=== PATIENT | male | born 1990 | race African-American/Black ===

== ENCOUNTER 2021-07-24 14:10 | Emergency (ER) | payer BC ==
[~2021-07-24] VITALS: Ht 172.7 cm; Wt 80.0 kg
[2021-07-24 14:10] VITALS: BP 139/89
--- NOTE | 2021-07-24 14:30 | PHYS DOC ---
General Adult EDM: Chief Complaint: Covid exposure HPI: HPI: 30-year-old male who presents with Covid exposure. He is staying at the local nursing home house and has had a confirmed exposure. Patient is having a dry intermittent cough. He has a 3-year-old child and is concerned about exposing him/her. He also has been asked by his employer to get tested given his exposure. That is why the patient came today. He denies fever or chills. He is vaccinated against COVID-19. He has never tested positive as far he knows. Review of Systems: Review of Systems: Constitutional: Denies fever or chills Eyes: Denies change in visual acuity HENT: Denies nasal congestion or sore throat Respiratory: Cough without shortness of breath Cardiovascular: Denies chest pain or edema GI: Denies abdominal pain, nausea, vomiting, bloody stools or diarrhea : Denies dysuria Musculoskeletal: Denies back pain or joint pain Integument: Denies rash Neurologic: Denies headache, focal weakness or sensory changes Endocrine: Denies polyuria or polydipsia Lymphatic: Denies swollen glands Psychiatric: Denies depression or anxiety Physical Exam: PE: Constitutional: Well developed, well nourished, no acute distress, non-toxic appearance. [] HENT: Normocephalic, atraumatic, bilateral external ears normal, oropharynx moist, no oral exudates, nose normal. [] Eyes: PERRLA, EOMI, conjunctiva normal, no discharge. [] Neck: Normal range of motion, no tenderness, supple, no stridor. [] Cardiovascular: Heart rate regular rhythm, no murmur [] Lungs & Thorax: Bilateral breath sounds clear to auscultation [] Abdomen: Bowel sounds normal, soft, no tenderness, no masses, no pulsatile masses. [] Skin: Warm, dry, no erythema, no rash. [] Back: No tenderness, no CVA tenderness. [] Extremities: No tenderness, no cyanosis, no clubbing, ROM intact, no edema. [] Neurologic: Alert and oriented X 3, normal motor function, normal sensory function, no focal deficits noted. [] Psychologic: Affect normal, judgement normal, mood normal. [] EKG: EKG: [] Radiology/Procedures: Radiology/Procedures: [] Heart Score: C/O Chest Pain: N/A Risk Factors: Risk Factors: DM, Current or recent (<one month) smoker, HTN, HLP, family history of CAD, obesity. Risk Scores: Score 0 - 3: 2.5% MACE over next 6 weeks - Discharge Home Score 4 - 6: 20.3% MACE over next 6 weeks - Admit for Clinical Observation Score 7 - 10: 72.7% MACE over next 6 weeks - Early Invasive Strategies Course & Med Decision Making: Course & Med Decision Making Pertinent Labs and Imaging studies reviewed. (See chart for details) The patient's rapid influenza and COVID are negative. I have informed the patient (not necessarily mean he does not have COVID-19. If he develops more symptoms he should still isolate from other people. He is stable for discharge at this time. [] Isidoroon Disclaimer: Omi Disclaimer: This electronic medical record was generated, in whole or in part, using a voice recognition dictation system. Departure Departure: Impression: Primary Impression: Exposure to COVID-19 virus Disposition: HOME / SELF CARE / HOMELESS Condition: STABLE Referrals: PCP,UNKNOWN (PCP) RONALDO LYNN DO Jul 24, 2021 14:30
[2021-07-24 14:54] LABS: INFLUENZA A PATIENT NEGATIVE (NEGATIVE); INFLUENZA B PATIENT NEGATIVE (NEGATIVE)
[2021-07-24] MEDS ORDERED: AMOX1TAB11 PO (15:25)
[2021-07-24] MEDS ORDERED: AMOXICILLIN/K CLAV 875/125MG TABLET. PO ONE (15:30)
== END 2021-07-24 15:32 | disposition home or self-care (01) ==
LOC: ER 14:10
DX: R05.9 Cough, unspecified (principal); Z20.822 Contact with and (suspected) exposure to COVID-19
CPT/HCPCS: 87428; 99283

== ENCOUNTER 2021-08-02 19:12 | Emergency (ER) | payer BC ==
[~2021-08-02] VITALS: Ht 172.7 cm; Wt 79.6 kg
[~2021-08-02 19:12] MED LIST: AMOX1TAB11 PO
[2021-08-02 19:36] VITALS: BP 135/108
[2021-08-02] MEDS ORDERED: HYDR-2155 PO (20:18)
--- NOTE | 2021-08-02 20:23 | PHYS DOC ---
Past History Past Surgical History: No Surgical History (SUSAN BEEBE APRN) Alcohol Use: Occasionally (SUSAN BEEBE APRN) General Adult EDM: Chief Complaint: DENTAL PROBLEM HPI: HPI: Patient is a 30-year-old male presents with right lower dental pain and swelling. Patient reports he had a root canal a week ago. Swelling started yesterday. Patient is out of his hydrocodone and is unable to sleep due to pain. Reports taking ibuprofen today with little relief. Patient has a dentist and will be calling tomorrow to make a follow-up appointment in the morning. Denies medical history. (SUSAN BEEBE APRN) Review of Systems: Review of Systems: ROS At least 10 ROS systems have been reviewed and are negative except as documented in the HPI. General: Negative except as outlined in HPI above. Skin: Negative except as outlined in HPI above. HEENT: Negative except as outlined in HPI above. Neck: Negative except as outlined in HPI above. Respiratory: Negative except as outlined in HPI above.. Cardiovascular: Negative except as outlined in HPI above. Abdomen: Negative except as outlined in HPI above. : Negative except as outlined in HPI above. Back/MSK: Negative except as outlined in HPI above. Neuro: Negative except as outlined in HPI above. Psych: Negative except as outlined in HPI above. (SUSAN BEEBE APRN) Allergies: Allergies: Allergies Coded Allergies Type Severity Reaction Last Updated Verified No Known Drug Allergies 08/02/21 No (SUSAN BEEBE APRN) Physical Exam: PE: Constitutional: Well developed, well nourished, no acute distress, non-toxic appearance. [] HENT: bilateral external ears normal, oropharynx moist, no oral exudates, swellingright lower face Eyes: PERRLA, conjunctiva normal, no discharge. [] Neck: Normal range of motion, no tenderness, supple, no stridor. [] Cardiovascular:Heart rate regular rhythm, no murmur [] Lungs & Thorax: Bilateral breath sounds clear to auscultation [] Abdomen: Bowel sounds normal, soft, no tenderness, no masses, no pulsatile masses. [] Skin: Warm, dry, no erythema, no rash. [] Back: No tenderness, no CVA tenderness. [] Extremities: No tenderness, no cyanosis, no clubbing, ROM intact, no edema. [] Neurologic: Alert and oriented X 3, normal motor function, normal sensory functi on, no focal deficits noted. [] Psychologic: Affect normal, judgement normal, mood normal. [] (SUSAN BEEBE APRN) Current Patient Data: Vital Signs: Vital Signs Date Time Temp Pulse Resp B/P (MAP) Pulse Ox O2 Delivery O2 Flow Rate FiO2 08/02/21 19:36 98.0 75 20 135/108 (117) 97 (SUSAN BEEBE APRN) EKG: EKG: [] (SUSAN BEEBE APRN) Radiology/Procedures: Radiology/Procedures: [] (SUSAN BEEBE APRN) Heart Score: C/O Chest Pain: No Risk Factors: Risk Factors: DM, Current or recent (<one month) smoker, HTN, HLP, family history of CAD, obesity. Risk Scores: Score 0 - 3: 2.5% MACE over next 6 weeks - Discharge Home Score 4 - 6: 20.3% MACE over next 6 weeks - Admit for Clinical Observation Score 7 - 10: 72.7% MACE over next 6 weeks - Early Invasive Strategies (SUSAN BEEBE APRN) Course & Med Decision Making: Course & Med Decision Making Pertinent Labs and Imaging studies reviewed. (See chart for details) [] 30-year-old male presents with right, lower dental pain and swelling. Patient is out of hydrocodone. Patient sent home with a few hydrocodone until he can follow-up with his dentist. Patient will be seeing dentist tomorrow for follow-up. Patient had a root canal 1 week ago. Patient most likely has a dry socket. Patient reports he has been smoking cigarettes since the root canal. Afebrile. Hemodynamically stable upon disposition. (SUSAN BEEBE APRN) Course & Med Decision Making Did not see or evaluate patient. Did not discuss patient with PROJECT MANAGEMENT PROFESSOR. Agree with PROJECT MANAGEMENT PROFESSOR's work-up and disposition per note. (MARTIN RAPHAEL MD) Is[place] Disclaimer: Dragmary Disclaimer: This electronic medical record was generated, in whole or in part, using a voice recognition dictation system. (SUSAN BEEBE APRN) Departure Departure: Impression: Primary Impression: Pain, dental Disposition: HOME / SELF CARE / HOMELESS Condition: STABLE Referrals: PCP,UNKNOWN (PCP) Patient Instructions: Dental Caries Additional Instructions: You were seen in the emergency room for right-sided dental swelling and pain. I am sending you home with some pain medication. You can also take ibuprofen 600 mg, every 8 hours. Use ice to the affected side. You need to call your dentist in the morning and make an appointment to be seen. This would not res olve until you are seen by your dentist. You most likely have a dry socket from smoking cigarettes. EMERGENCY DEPARTMENT GENERAL DISCHARGE INSTRUCTIONS Thank you for coming to [facility] (ED) today and trusting us with you care. We trust that you had a positivie experience in our Emergency Department. If you wish to speak to the department management, you may call the director at [phone]. YOUR FOLLOW UP INSTRUCTIONS ARE FOLLOWS: 1. Do you have a private Doctor? If you do not have a private doctor, please ask for a resource list of physicians or clinics that may be able to assist you with foll ow up care. 2. The Emergency Physician has interpreted your x-rays. The X-Ray specialist will also review them. If there is a change in the findings, you will be notified in 48 hours when at all possible. 3. A lab test or culture has been done, your results will be reviewed and you will be notified if you need a change in treatment. ADDITIONAL INSTRUCTIONS AND INFORMATION: 1. Your care today has been supervised by a physician who is specially trained in emergency care. Many problems require more than one evaluation for a complete diagnosis and treatment. We recommend that you schedule your follow up appointment as re commended to ensure complete treatment of you illness or injury. If you are unable to obtain follow up care and continue to have a problem, or if your condition worsens, we recommend that you return to the ED. 2. We are not able to safely determine your condition over the phone nor are we able to give sound medical advice over the phone. For these safety reasons, if you call for medical advice we will ask you to come to the ED for further evaluation. 3. If you have any questions regarding these discharge instructions please call the ED at [phone]. SAFETY INFORMATION: In the interest of safety, wellness, and injury prevention; we encourage you to wear your sealbelt, if you smoke; quite smoking, and we encourage family to use a protective helmet for bicycling and other sporting events that present an increased risk for head injury. IF YOUR SYMPTOMS WORSEN OR NEW SYMPTOMS DEVELOP, OR YOU HAVE CONCERNS ABOUT YOUR CONDITION; OR IF YOUR CONDITION WORSENS WHILE YOU ARE WAITING FOR YOUR FOLLOW UP APPOINTMENT; EITHER CONTACT YOUR PRIMARY CARE DOCTOR, THE PHYSICIAN WHOSE NAME AND NUMBER YOU WERE GIVEN, OR RETURN TO THE ED IMMEDIATELY. Scripts Hydrocodone Bit/Acetaminophen (HYDROCODONE-APAP 5-325 ) 1 Each Tablet 1-2 TAB PO PRN Q6HRS PRN for PAIN for 3 Days, #12 TAB 0 Refills Prov: SUSAN BEEBE APRN 08/02/21 SUSAN BEEBE APRN Aug 02, 2021 20:22 MARTIN RAPHAEL MD Aug 02, 2021 23:32
== END 2021-08-02 20:34 | disposition home or self-care (01) ==
LOC: ER 19:12
DX: K08.89 Other specified disorders of teeth and supporting structures (principal); R22.0 Localized swelling, mass and lump, head
CPT/HCPCS: 99283